=== PATIENT | female | born 1960 | race Caucasian/White ===

== ENCOUNTER 2021-06-17 14:58 | Emergency (ER) | payer OTHER ==
[~2021-06-17 14:58] MED LIST: AMOXICILLIN500 MG PO; GLIMEPIRIDE4 MG PO; JANUVIA100 MG PO; LIPITOR40 MG PO; METFORMIN HCL1000 MG PO; MOBIC15 MG PO; MOTRIN600 MG PO; NORVASC10 MG PO; PERCOCET 5-3251 EACH PO; PROZAC20 MG PO
[2021-06-17] MEDS ORDERED: MOTRIN600 MG PO (18:41)
== END 2021-06-17 18:49 | disposition home or self-care (01) ==
LOC: FER 14:58
DX: S83.92XA Sprain of unspecified site of left knee, initial encounter (principal); I10 Essential (primary) hypertension; E11.9 Type 2 diabetes mellitus without complications; Z79.84 Long term (current) use of oral hypoglycemic drugs; Z79.899 Other long term (current) drug therapy; W19.XXXA Unspecified fall, initial encounter
CPT/HCPCS: 73700

== ENCOUNTER 2021-07-29 06:37 | Inpatient (IN) | payer OTHER ==
[~2021-07-29] VITALS: Ht 162.6 cm; Wt 88.0 kg
[~2021-07-29 06:37] MED LIST changes: -NORVASC10 MG PO
[2021-07-29 07:27] LABS: BASOPHIL 0.3 % (0-2); EOSINOPHIL 0.1 % (0-5); HCT 40.1 % (37.0-47.0); HGB 12.4 g/dl (12.5-16.0); LYMPHOCYTE 3.4 % (15-48); MCH 24.8 pg (25.0-31.0); MCHC 30.9 g/dL (32.0-36.0); MCV 80.4 fL (78.0-100.0); MONOCYTE 1.6 % (0-12); MPV 9.7 fL (6.0-9.5); NRBC 0; PLT 187 K/uL (150-400); RBC 4.99 M/uL (4.20-5.40); RDW 14.4 % (11.5-14.0); WBC 6.7 K/uL (4.0-10.5)
[2021-07-29 07:55] LABS: INR 1.22 (0.9-1.2); PROTHROMBIN TIME 14.8 SECONDS (11.8-13.4); PTT 34.6 SECONDS (24.4-34.7)
[2021-07-29 08:04] LABS: CORONAVIRUS 2019 SARS-COV-2 NEGATIVE (NEGATIVE); INFLUENZA A NAA NEGATIVE (NEGATIVE)
[2021-07-29 08:09] LABS: BILIRUBIN NEGATIVE (NEGATIVE); BLOOD TRACE-INTACT Ery/uL (NEGATIVE); COLOR YELLOW (YELLOW); GLUCOSE (U) NORMAL (NORMAL); LEUKOCYTES 1+ Leu/uL (NEGATIVE); NITRITE POSITIVE (NEGATIVE); PROTEIN 2+ mg/dL (NEGATIVE); SPECIFIC GRAVITY >=1.030 (1.001-1.030); UROBILINOGEN 0.2 mg/dL (0.2-1.0)
[2021-07-29 08:09] LABS: ALBUMIN 3.5 g/dL (3.4-5.0); BILIRUBIN - TOTAL 1.1 mg/dL (0.2-1.0); BUN/CREAT RATIO (CALC) 22.2 RATIO; CREATININE 0.72 mg/dL (0.51-0.95); GLOBULIN (CALCULATION) 4.5 g/dL; POTASSIUM 3.4 mmol/L (3.5-5.1)
[2021-07-29 08:18] LABS: CLARITY SLIGHTLY HAZY (CLEAR)
[2021-07-29 08:24] LABS: URINARY WBC TNTC
[2021-07-29 08:25] LABS: BACTERIA 3+; URINARY RBC RARE
[2021-07-29 09:48] LABS: LACTIC ACID 3.2 mmol/L (0.4-1.9)
[2021-07-29] MEDS ORDERED: NORVASC10 MG PO (11:20)
[2021-07-29] MEDS ORDERED: SYNTHROID50 MCG PO (11:21)
[2021-07-29] MEDS ORDERED: LASIX20 MG PO (11:23)
[2021-07-29] MEDS ORDERED: OZEMPIC1 MG/0.71 IJ (11:23)
[2021-07-29] MEDS ORDERED: LOPRESSOR25 MG PO (11:24)
--- NOTE | 2021-07-30 03:31 | NUR ---
PATIENT C/O H/A AND NAUSEA, TYLENOL 650 MG PO GIVEN AND ZOFRAN 4MG IVSP GIVEN, BLOOD SUGAR CHECKED RESULTS 139.
--- NOTE | 2021-07-30 05:43 | NUR ---
STAT EKG ORDER RECIEVED AND NOTED FROM DR. DIAZ, RESULTS OF EKG NSR, PATIENT REMAINS ON CARDIAC MONITORING.
[2021-07-30 07:36] LABS: ALBUMIN 2.7 g/dL (3.4-5.0); BILIRUBIN - TOTAL 0.2 mg/dL (0.2-1.0); BUN/CREAT RATIO (CALC) 11.8 RATIO; CREATININE 0.68 mg/dL (0.51-0.95); GLOBULIN (CALCULATION) 3.9 g/dL; MAGNESIUM 1.8 mg/dL (1.8-2.4); POTASSIUM 3.3 mmol/L (3.5-5.1); TOTAL PROTEIN 6.6 g/dL (6.4-8.2)
[2021-07-31 05:42] LABS: BUN/CREAT RATIO (CALC) 7.7 RATIO; CREATININE 0.65 mg/dL (0.51-0.95); POTASSIUM 4.1 mmol/L (3.5-5.1)
[2021-07-31 06:06] LABS: BASOPHIL 0.4 % (0-2); EOSINOPHIL 1.1 % (0-5); HCT 34.5 % (37.0-47.0); HGB 10.6 g/dl (12.5-16.0); LYMPHOCYTE 13.4 % (15-48); MCH 24.8 pg (25.0-31.0); MCHC 30.7 g/dL (32.0-36.0); MCV 80.8 fL (78.0-100.0); MONOCYTE 10.7 % (0-12); MPV 9.8 fL (6.0-9.5); NRBC 0; PLT 205 K/uL (150-400); RBC 4.27 M/uL (4.20-5.40); RDW 14.5 % (11.5-14.0); WBC 8.1 K/uL (4.0-10.5)
[2021-07-31 11:17] LABS: IRON % SATURATION 5.1 %SAT (20-50)
[2021-08-01 06:26] LABS: BASOPHIL 0.6 % (0-2); EOSINOPHIL 1.1 % (0-5); HCT 37.8 % (37.0-47.0); HGB 11.7 g/dl (12.5-16.0); LYMPHOCYTE 23.1 % (15-48); MCH 24.6 pg (25.0-31.0); MCV 79.4 fL (78.0-100.0); MONOCYTE 13.5 % (0-12); MPV 9.6 fL (6.0-9.5); NEUTROPHIL 61.3 % (41-80); NRBC 0; PLT 247 K/uL (150-400); RBC 4.76 M/uL (4.20-5.40); RDW 14.1 % (11.5-14.0); WBC 8.3 K/uL (4.0-10.5)
[2021-08-01 06:45] LABS: BUN/CREAT RATIO (CALC) 12.3 RATIO; CREATININE 0.73 mg/dL (0.51-0.95)
[2021-08-01] MEDS ORDERED: ELIQUIS5 MG PO (07:59)
[2021-08-01] MEDS ORDERED: FLORANEX TABLE1 EACH PO (07:59)
[2021-08-01] MEDS ORDERED: FOLIC ACID1 MG PO (07:59)
[2021-08-01] MEDS ORDERED: TOPROL XL 25MG25 MG PO (07:59)
[2021-08-01] MEDS ORDERED: BACTRIM DS TAB1 EACH PO (07:59)
== END 2021-08-01 11:35 | disposition home or self-care (01) | DRG 872 ==
LOC: FER 06:37 → FMS 09:38 → FTCU 07-30 15:17
PROVIDERS: Allergy & Immunology Allergy; Emergency Medicine; Family Medicine; Internal Medicine; ADMIT Internal Medicine
PROC: 3E03329 Introduction of Other Anti-infective into Peripheral Vein, Percutaneous Approach (ICD-10-PCS; 2021-07-29)
PROC: B24BZZZ Ultrasonography of Heart with Aorta (ICD-10-PCS; principal; 2021-08-01)
DX: A41.51 Sepsis due to Escherichia coli [E. coli] (principal); E87.2 Acidosis; N12 Tubulo-interstitial nephritis, not specified as acute or chronic; R65.20 Severe sepsis without septic shock; Z20.822 Contact with and (suspected) exposure to COVID-19; E87.6 Hypokalemia; E11.65 Type 2 diabetes mellitus with hyperglycemia; D64.9 Anemia, unspecified; R51.9 Headache, unspecified; I48.0 Paroxysmal atrial fibrillation; I11.0 Hypertensive heart disease with heart failure; I50.9 Heart failure, unspecified; E11.69 Type 2 diabetes mellitus with other specified complication; E78.2 Mixed hyperlipidemia; E03.9 Hypothyroidism, unspecified; Z79.899 Other long term (current) drug therapy; Z79.84 Long term (current) use of oral hypoglycemic drugs; Z90.49 Acquired absence of other specified parts of digestive tract; Z82.49 Family history of ischemic heart disease and other diseases of the circulatory system; Z95.5 Presence of coronary angioplasty implant and graft
CPT/HCPCS: 36415; 71045; 71260; 80048; 80053; 81001; 82607; 82962; 83540; 83550; 83605; 83690; 83735; 83880; 84145; 84443; 84484; 85025; 85610; 85730; 87076; 87088; 87186; 93005; J0696; J1650; J2405; J2543; J3475; J7030; J7050; J7120; Q9967; U0002

== ENCOUNTER 2021-09-29 20:37 | Emergency (ER) | payer OTHER ==
[~2021-09-29 20:37] MED LIST changes: +BACTRIM DS TAB1 EACH PO; +ELIQUIS5 MG PO; +FLORANEX TABLE1 EACH PO; +FOLIC ACID1 MG PO; +LASIX20 MG PO; +LOPRESSOR25 MG PO; +NORVASC10 MG PO; +OZEMPIC1 MG/0.71 IJ; +SYNTHROID50 MCG PO; +TOPROL XL 25MG25 MG PO
[2021-09-29 22:10] LABS: BASOPHIL 0.5 % (0-2); EOSINOPHIL 0.8 % (0-5); HCT 39.6 % (37.0-47.0); HGB 12.4 g/dl (12.5-16.0); LYMPHOCYTE 20.6 % (15-48); MCHC 31.3 g/dL (32.0-36.0); MCV 79.8 fL (78.0-100.0); MONOCYTE 7.1 % (0-12); NEUTROPHIL 70.7 % (41-80); NRBC 0; PLT 305 K/uL (150-400); RBC 4.96 M/uL (4.20-5.40); RDW 15.2 % (11.5-14.0); WBC 11.5 K/uL (4.0-10.5)
[2021-09-29 22:45] LABS: BILIRUBIN - TOTAL 0.3 mg/dL (0.2-1.0); BUN/CREAT RATIO (CALC) 22.2 RATIO; CREATININE 0.81 mg/dL (0.51-0.95); GLOBULIN (CALCULATION) 3.9 g/dL; POTASSIUM 4.2 mmol/L (3.5-5.1); TOTAL PROTEIN 7.9 g/dL (6.4-8.2)
[2021-09-29 22:51] LABS: BILIRUBIN NEGATIVE (NEGATIVE); BLOOD NEGATIVE Ery/uL (NEGATIVE); CLARITY CLEAR (CLEAR); COLOR YELLOW (YELLOW); GLUCOSE (U) NORMAL (NORMAL); LEUKOCYTES 1+ Leu/uL (NEGATIVE); NITRITE NEGATIVE (NEGATIVE); PROTEIN 2+ mg/dL (NEGATIVE); SPECIFIC GRAVITY 1.025 (1.001-1.030); UROBILINOGEN 0.2 mg/dL (0.2-1.0)
[2021-09-29 22:57] LABS: BACTERIA 2+; MUCOUS TRACE; URINARY RBC RARE
[2021-09-29 22:58] LABS: AMORPHOUS URATES CRYSTALS TRACE
[2021-09-29 23:24] LABS: CORONAVIRUS 2019 SARS-COV-2 NEGATIVE (NEGATIVE); INFLUENZA A NAA NEGATIVE (NEGATIVE)
[2021-09-30] MEDS ORDERED: ONDANSETRON ODT4 MG PO (00:25)
[2021-09-30] MEDS ORDERED: PHENERGAN25 M1 PO (00:25)
[2021-09-30] MEDS ORDERED: BACTRIM DS TAB1 EACH PO (00:25)
== END 2021-09-30 00:50 | disposition home or self-care (01) ==
LOC: FER 20:37
PROVIDERS: Internal Medicine
DX: N39.0 Urinary tract infection, site not specified (principal); R11.2 Nausea with vomiting, unspecified; R19.7 Diarrhea, unspecified; E11.9 Type 2 diabetes mellitus without complications; Z79.84 Long term (current) use of oral hypoglycemic drugs; Z20.822 Contact with and (suspected) exposure to COVID-19
CPT/HCPCS: 36415; 80053; 81001; 83690; 84145; 84484; 85025; 93005; J0696; J2270; J2405; J7030; U0002